=== PATIENT | male | born 1980 | race Caucasian/White ===

== ENCOUNTER 2024-12-30 20:49 | Inpatient (IN) | payer BC ==
[~2024-12-30] VITALS: Ht 182.9 cm; Wt 102.1 kg
[2024-12-30] MEDS ORDERED: IOPAMIDOL 370 MG/ML 100 ML INFUS..BTL INJ ONE (21:26)
[2024-12-30] MEDS: ONDANSETRON HCL INJ 2MG/ML 2ML 2 MG/ML VIAL IV STA ×2 (22:34→22:35)
[2024-12-30] MEDS: Morphine 4mg INJECTION 4 MG/ML INJ IV STA (22:35)
[2024-12-30] MEDS: SODIUM CHLORIDE 0.9% 1000ML 1,000 ML IV STA (22:35)
[2024-12-31] VITALS (39 sets, daily range): BP systolic 118–153; BP diastolic 70–107; PULSE 90–120; RESP 16–26; TEMP 98.3–98.6; O2SAT 93–99
[2024-12-31] MEDS: Morphine 4mg INJECTION 4 MG/ML INJ IV PRN (00:46)
[2024-12-31 01:33] LABS: EST GLOMERULAR FILTRATION RATE 120 ML/MIN (>=60)
[2024-12-31] MEDS: SODIUM CHLORIDE 0.9% 1000ML 1,000 ML IV SCH ×2 (02:44→05:06)
[2024-12-31] MEDS ORDERED: POTASSIUM CHLORIDE 20MEQ/100ML 200 ML IV PRN (03:15)
[2024-12-31] MEDS: DEXTROSE 5%/0.45% SOD CHL 1,000 ML IV SCH (03:15)
[2024-12-31] MEDS ORDERED: MAGNESIUM SULF 1GRAM/DEXTROSE 100 ML IV PRN (03:15)
[2024-12-31] MEDS ORDERED: MAGNESIUM/ALUMINUM/SIMETHICONE 30 ML UDC PO PRN (04:30)
[2024-12-31] MEDS ORDERED: MELATONIN 3 MG TAB PO PRN (04:30)
[2024-12-31] MEDS ORDERED: GUAIFENESIN/DEXTROMETHORPHAN LIQD 5 ML UDC PO PRN (04:30)
[2024-12-31] MEDS ORDERED: ACETAMINOPHEN 325 MG TAB PO PRN (04:30)
[2024-12-31] MEDS ORDERED: HYDRALAZINE HCL 20 MG/ML VIAL IV PRN (04:30)
[2024-12-31 04:53] LABS: ABG BASE EXCESS -11.0 mmol/L (-2 - 3); ABG HCO3 16 mmol/L (22-26); ABG OXYGEN SATURATION 90.0 % (95-98); ABG PCO2 35 mmHg (35-45); ABG PH 7.26 (7.35-7.45); ABG PO2 68 mmHg (80-105); ABG TCO2 17
[2024-12-31] MEDS: INSULIN REGULAR, HUMAN 3ML VL 100 UNIT in SODIUM CHLORIDE 0.9% 100 ML IV SCH (05:07)
[2024-12-31 06:55] LABS: EST GLOMERULAR FILTRATION RATE 118 ML/MIN (>=60)
[2024-12-31 07:13] LABS: T3 UPTAKE 32.03 % (22.5-37.0)
[2024-12-31 07:37] LABS: LACTATE DEHYDROGENASE 92 IU/L (125-220); PHOSPHORUS 4.1 MG/DL (2.3-4.7)
[2024-12-31 07:45] LABS: BASOPHILS % 0.2 % (0.0-1.0); EOSINOPHILS % 0.5 % (0.0-6.0); LYMPHOCYTES % 5.7 % (18.0-39.1); MONOCYTES % 5.8 % (4.4-11.3); NEUTROPHILS % 87.2 % (38.7-80.0); RED CELL DISTRIBUTION WIDTH 13.6 % (11.7-14.4)
[2024-12-31] MEDS: MULTIVITAMINS/MINERALS TAB PO SCH (08:43)
[2024-12-31 13:16] LABS: EST GLOMERULAR FILTRATION RATE 119 ML/MIN (>=60)
[2024-12-31 16:57] LABS: EST GLOMERULAR FILTRATION RATE 119.0 ML/MIN (>=60)
[2024-12-31] MEDS: ENOXAPARIN SOD INJ 40 MG/0.4 ML SYR SC SCH (17:03)
[2024-12-31] MEDS ORDERED: POLYETHYLENE GLYCOL 3350 17 GM PACK PO PRN (17:45)
[2024-12-31] MEDS ORDERED: BISACODYL 10 MG SUPP PR PRN (17:45)
[2024-12-31 21:03] LABS: EST GLOMERULAR FILTRATION RATE 116.0 ML/MIN (>=60)
[2025-01-01] VITALS (26 sets, daily range): BP systolic 95–137; BP diastolic 62–81; PULSE 87–119; RESP 12–26; TEMP 98.6–99.3; O2SAT 87–97
[2025-01-01 07:08] LABS: EST GLOMERULAR FILTRATION RATE 119.0 ML/MIN (>=60)
[2025-01-01] MEDS: POTASSIUM CHLORIDE 20MEQ/100ML 100 ML INJ PRN (08:20)
[2025-01-01] MEDS: ONDANSETRON HCL INJ 2MG/ML 2ML 2 MG/ML VIAL IV PRN (09:19)
[2025-01-01] MEDS: POTASSIUM CHLORIDE 20 MEQ TAB CR PO STA (09:49)
[2025-01-01 09:55] LABS: EPITHELIAL CELLS,URINE FEW /LPF; LEUKOCYTE ESTERASE ,URINE NEGATIVE (NEGATIVE); PROTEIN,URINE DIPSTICK 1+ (NEGATIVE); URINE UROBILINOGEN 1 mg/dL (0.2 - 1); WBC,URINE (MAN) 0-5 /HPF (0-5)
[2025-01-01] MEDS ORDERED: POTASSIUM CHLORIDE 20 MEQ TAB CR PO PRN ×2 (10:15)
[2025-01-01] MEDS: FENOFIBRATE 145 MG TAB PO SCH (20:42)
[2025-01-02] VITALS (25 sets, daily range): BP systolic 111–129; BP diastolic 68–96; PULSE 75–102; RESP 13–25; TEMP 98.5–99; O2SAT 93–99
[2025-01-02 05:18] LABS: BASOPHILS % 0.4 % (0.0-1.0); EOSINOPHILS % 1.1 % (0.0-6.0); LYMPHOCYTES % 11.3 % (18.0-39.1); MONOCYTES % 7.3 % (4.4-11.3); NEUTROPHILS % 79.4 % (38.7-80.0); RED CELL DISTRIBUTION WIDTH 13.3 % (11.7-14.4)
[2025-01-02 05:40] LABS: EST GLOMERULAR FILTRATION RATE 113.0 ML/MIN (>=60)
[2025-01-02] MEDS ORDERED: FENOFIBRATE 145 MG TAB PO SCH (09:00)
[2025-01-02] MEDS: POTASSIUM CHLORIDE 20 MEQ TAB CR PO STA (09:32)
[2025-01-02] MEDS: FENOFIBRATE 145 MG TAB PO SCH (12:41)
[2025-01-02] MEDS: CRESTOR 10MG PO SCH (20:41)
[2025-01-02] MEDS ORDERED: INSULIN REGULAR, HUMAN 3ML VL 100 UNIT in SODIUM CHLORIDE 0.45% 100 ML 100 ML IV SCH (21:30)
[2025-01-02] MEDS ORDERED: DEXTROSE 50% SYRINGE 50 ML IV PRN (21:30)
[2025-01-02] MEDS: INSULIN GLARGINE 100 UNITS/ML VIAL SQ ONE (21:34)
[2025-01-02] MEDS: DEXTROSE 5%/0.45% SOD CHL 1,000 ML IV SCH (21:44)
[2025-01-03] VITALS (16 sets, daily range): BP systolic 97–131; BP diastolic 47–82; PULSE 66–89; RESP 14–23; TEMP 98.2–98.6; O2SAT 94–98
[2025-01-03 05:21] LABS: BASOPHILS % 0.4 % (0.0-1.0); EOSINOPHILS % 1.6 % (0.0-6.0); LYMPHOCYTES % 19.5 % (18.0-39.1); MONOCYTES % 8.1 % (4.4-11.3); NEUTROPHILS % 70.0 % (38.7-80.0); RED CELL DISTRIBUTION WIDTH 13.2 % (11.7-14.4)
[2025-01-03 05:50] LABS: EST GLOMERULAR FILTRATION RATE 117.0 ML/MIN (>=60)
[2025-01-03 06:16] LABS: CHOL/HDL RATIO 19.4 (3.9-4.7)
[2025-01-03] MEDS: POTASSIUM CHLORIDE 20 MEQ TAB CR PO ONE (09:01)
[2025-01-03] MEDS: MAGNESIUM SULF 1GRAM/DEXTROSE 100 ML IV ONE (09:02)
[2025-01-03] MEDS: INSULIN LISPRO 100 UNIT/1 ML 3ML VIAL SQ ONE (12:18)
[2025-01-03] MEDS: INSULIN LISPRO 100 UNIT/1 ML 3ML VIAL SQ SCH ×2 (16:34→16:35)
[2025-01-03] MEDS: INSULIN GLARGINE 100 UNITS/ML VIAL SQ SCH (21:03)
[2025-01-04] VITALS: BP 126/79; PULSE 90; RESP 18; TEMP 98.4; O2SAT 97
[2025-01-04] MEDS ORDERED: SODIUM CHLORIDE 0.9% 250ML 250 ML ONE (00:17)
[2025-01-04 04:00] VITALS: BP 109/63; PULSE 76; RESP 18; TEMP 97.7; O2SAT 100
[2025-01-04 06:20] LABS: BASOPHILS % 0.4 % (0.0-1.0); EOSINOPHILS % 2.2 % (0.0-6.0); LYMPHOCYTES % 23.0 % (18.0-39.1); MONOCYTES % 8.0 % (4.4-11.3); NEUTROPHILS % 65.7 % (38.7-80.0); RED CELL DISTRIBUTION WIDTH 13.0 % (11.7-14.4)
[2025-01-04 06:25] LABS: ABG BASE EXCESS -11.0 mmol/L (-2 - 3); ABG HCO3 16 mmol/L (22-26); ABG OXYGEN SATURATION 90.0 % (95-98); ABG PCO2 35 mmHg (35-45); ABG PH 7.26 (7.35-7.45); ABG PO2 68 mmHg (80-105); ABG TCO2 17
[2025-01-04 06:46] LABS: EST GLOMERULAR FILTRATION RATE 112.0 ML/MIN (>=60)
[2025-01-04 08:00] VITALS: BP 130/78; PULSE 88; RESP 19; TEMP 98; O2SAT 99
[2025-01-04 08:14] VITALS: BP 130/78; PULSE 88; RESP 19; TEMP 98; O2SAT 99
[2025-01-04 12:00] VITALS: BP 127/89; PULSE 89; RESP 20; TEMP 98.5; O2SAT 98
== END 2025-01-04 15:20 | disposition home or self-care (01) | DRG 438 ==
LOC: FSED 21:01 → ERHOLD 23:57 → ICU 12-31 07:22 → MED/SURG3 01-03 19:38
PROVIDERS: ADMIT Family Medicine Adult Medicine; ATTEND Family Medicine Adult Medicine
PROC: 4A133R1 Monitoring of Arterial Saturation, Peripheral, Percutaneous Approach (ICD-10-PCS; principal; 2024-12-30)
DX: K86.1 Other chronic pancreatitis (principal); E11.10 Type 2 diabetes mellitus with ketoacidosis without coma; K92.1 Melena; D73.5 Infarction of spleen; E78.1 Pure hyperglyceridemia; K76.0 Fatty (change of) liver, not elsewhere classified; R16.0 Hepatomegaly, not elsewhere classified; K57.90 Diverticulosis of intestine, part unspecified, without perforation or abscess without bleeding; Z11.52 Encounter for screening for COVID-19; Z79.4 Long term (current) use of insulin
CPT/HCPCS: 0223U; 36415; 36600; 70450; 74177; 80048; 80053; 80061; 80076; 81001; 81003; 82550; 82805; 82948; 83036; 83615; 83690; 83735; 84100; 84436; 84443; 84478; 84479; 84484; 85025; 87400; 93005; 93970; 94799; 96375; 99285; J1650; J2270; J2405; J2470; J2543; J3475; J3480; J7030; J7050; Q9967